=== PATIENT | female | born 1950 | race Caucasian/White ===

== ENCOUNTER 2022-03-18 11:00 | Outpatient (RCR) | payer MEDICARE, SELFPAY ==
--- NOTE | 2021-09-09 12:04 | OT.OPLDN ---
OT Outpatient Lymphedema Daily Note OT Outpatient Lymphedema Daily Note Start: 09/09/21 10:39 Freq: Status: Active Protocol: Document 09/09/21 10:52 AMB (Rec: 09/09/21 12:03 AMB [id number]) E-signed By Nicole Bernal, OTR/L, CLT, CONDENSER TESTER OT OP Lymphedema Daily/Progress Note Insurance Information Insurance Information Medicare B Insurance Information Comments Please see evaluation dated in [employer]. Original Cert dates are 06/06/21-09/05/21 New Medicare cert dates: 09/05-12/05/21 Recert Due Recert Due 12/05/21 Note Type Note Type Daily,Recert/Progress Note Subjective Subjective Pt continues to do well, pt denies any concerns for lymphedema and has not noted any swelling in her arms or chest wall. Pt has been wearing a compression bra with OTS cups in place, likes them , states she actually got them at [facility]. Home Program Compliant To Home Program Yes Home Program Specifics Self Monitoring Treatment Self Care Provided review of patient education regarding the lymphatic system, s/s of lymphedema, treatment options for lymphedema, implications of untreated lymphedema, infection and it's correlation to lymphedema as well as implications of untreated infection. Discussed risk reduction practices including skin care and monitoring strategies. Discussed the importance of regular exercise and healthy habits. 15 min Therapeutic Activities Re-assessment of BUE limb circumference, please see assessment. Assessment Pt presents for continuation of lymphedema surveillance program. Following her 05/08/21 mastectomy with SLN biopsy, pt is now at risk for lymphedema in her BUE / upper quadrant due to LN removal. Pt will continue to benefit from skilled OT intervention for pt education, monitoring /surveillance in order to provide early detection / intervention to assure best positive outcomes with fewer lymphedema related complications if the need arises. Pt demonstrates good interest and motivation to be an active participant in her care. Pt asked multiple pertinent questions and received satisfactory answers. Pt was given contact info and encouraged to reach out if more questions arise. Pt likes to keep active, lives a healthy lifestyle and acknowledges the value in regular medical visits SHANTE OSUNA Met heads 19.5cm 19.0cm Palm 20.0 19.5 Wrist 15.5 15.5 10cm 19.0 18.8 20cm 23.5 23.5 30cm 28.9 30.0 40cm 32.5 33.0 Pt demonstrates good skin condition and no obvious swelling in either extremity. Treatment Minutes Timed Treatment Minutes 20 Total Timed Treatment Minutes 20 Patient Goals Patient Goals 1. Pt will demonstrate a general understanding of the lymphatic system, s/s of lymphedema, treatment of lymphedema, implications of untreated lymphedema, s/s of infection and the correlation of infection related to lymphedema. 3 months 2. Pt will be compliant with quarterly assessments for lymphedema surveillance in order to obtain early intervention with best outcomes if needed. 12 months Treatment Plan Treatment Plan MLD,Skin Care Education,Short Stretch Compression Bandaging, Self Care/Patient/Family/ Caregiver Education, Therapeutic Exercise Instruction,Manual Therapy,HEP ,Therapeutic Activities Treatment Plan Comments Signature of physician indicates agreement with: Treatment Plan Certification Dates Medically Needed Services Daily Plan of Care Continue Per POC Occupational Therapy Billing Units Billing Units Self Care/Home Management 1
--- NOTE | 2021-12-09 09:12 | OT.OPLDN ---
OT Outpatient Lymphedema Daily Note OT Outpatient Lymphedema Daily Note Start: 09/09/21 10:39 Freq: Status: Active Protocol: Document 12/09/21 08:59 AMB (Rec: 12/09/21 09:08 AMB [id number]) E-signed By Nicole Bernal, OTR/L, CLT, BUSINESS DEVELOPMENT ASSOCIATE OT OP Lymphedema Daily/Progress Note Note Type Note Type Recert/Progress Note Visit Number 3 Insurance Information Insurance Information Medicare B Insurance Information Comments Please see evaluation dated in [employer]. Original Cert dates are 06/06/21-09/05/21 New Medicare cert dates: -03/06/22 Current Condition/Medical Diagnosis Referring Provider Dr. Ovalles Treatment Diagnosis BUE mastectomy Date Of Onset 05/08/21 Recert Due Recert Due 12/05/21 Subjective Subjective Pt is doing well, does not feel she is showing any sxs of lymphedema. Pt states she and her are working hard on remodeling their cabin and she has really been working her arms, no concerns. Home Program Compliant To Home Program Yes Home Program Specifics Self Monitoring Treatment Self Care Provided review of patient education regarding the lymphatic system, s/s of lymphedema, treatment options for lymphedema, implications of untreated lymphedema, infection and it's correlation to lymphedema as well as implications of untreated infection. Discussed risk reduction practices including skin care and monitoring strategies. Discussed the upcoming winter months with dry / cracked skin, reminded pt of good skin care including lotion and monitoring. 15 min Therapeutic Activities Re-assessment of BUE limb circumference, please see assessment. Therapeutic Activity Minutes (minutes) 6 Assessment Pt presents for continuation of lymphedema surveillance program. Following her 05/08/21 mastectomy with SLN biopsy, pt is now at risk for lymphedema in her BUE / upper quadrant due to LN removal. Pt will continue to benefit from skilled OT intervention for pt education, monitoring /surveillance in order to provide early detection / intervention to assure best positive outcomes with fewer lymphedema related complications if the need arises. Pt continues to demonstrate good interest and motivation to be an active participant in her care. Pt asked multiple pertinent questions and received satisfactory answers. Pt has tag writer's contact info and encouraged to reach out if more questions arise. Pt likes to keep active, lives a healthy lifestyle and acknowledges the value in regular medical visits SHANTE OSUNA Met heads 19.5cm 19.0cm Palm 20.0 19.5 Wrist 15.5 15.5 10cm 19.0 18.7 20cm 23.3 23.5 30cm 28.5 30.1 40cm 32.5 32.5 Skin condition is excellent, no significant changes in circumferential measurements, no concerns for lymphedema at this time. Patient Goals Patient Goals 1. Pt will demonstrate a general understanding of the lymphatic system, s/s of lymphedema, treatment of lymphedema, implications of untreated lymphedema, s/s of infection and the correlation of infection related to lymphedema. 3 months 2. Pt will be compliant with quarterly assessments for lymphedema surveillance in order to obtain early intervention with best outcomes if needed. 12 months Treatment Plan Daily Plan of Care Continue Per POC Treatment Minutes Timed Treatment Minutes 21 Total Timed Treatment Minutes 21 Occupational Therapy Billing Units Billing Units Self Care/Home Management 1 Recertification Information Recertification Information Initial Certification Date 06/06/21 Recertification Start Date 12/05/21 Recertification Due Date 03/06/22 Reasons to Continue Skilled Therapy Pt will continue with lymphedema surveillance program with re-assessment quarterly for 12 months following date of surgery. If the need arises, pt will transition to treatment as indicated at the time of need, in which case, early detection and intervention yields best outcomes. Rehabilitation Potential Good Continued Plan of Care and Interventions TA, self care, MT, TE Provider Signature Shows Agreement With POC & Medical Necessity Physician Comment/Change Comment or Changes Physician NPI Number #
--- NOTE | 2022-03-18 12:55 | OT.OPLDN ---
OT Outpatient Lymphedema Daily Note OT Outpatient Lymphedema Daily Note Start: 09/09/21 10:39 Freq: Status: Active Protocol: Document 03/18/22 12:45 AMB (Rec: 03/18/22 12:54 AMB [id number]) E-signed By Nicole Bernal, OTR/L, CLT, METAL FITTER OT OP Lymphedema Daily/Progress Note Note Type Note Type Discharge Note,Recert/Progress Note Visit Number 4 Insurance Information Insurance Information Medicare B Insurance Information Comments Please see evaluation dated in [employer]. Original Cert dates are 06/06/21-09/05/21 New Medicare cert dates: -03/06/22 Current Condition/Medical Diagnosis Referring Provider Dr. Ovalles Treatment Diagnosis BUE mastectomy Date Of Onset 05/08/21 Recert Due Recert Due 03/06/22 Subjective Subjective Pt feels she is doing very well, no s/s of lymphedema, no concerns except a strange spot on her chest wall, I think it's a black head. Home Program Compliant To Home Program Yes Home Program Specifics Self Monitoring Treatment Self Care Provided review of patient education regarding the lymphatic system, s/s of lymphedema, treatment options for lymphedema, implications of untreated lymphedema, infection and it's correlation to lymphedema as well as implications of untreated infection. Discussed risk reduction practices including skin care and monitoring strategies. Discussed the upcoming winter months with dry / cracked skin, reminded pt of good skin care including lotion and monitoring. Recommended pt have MD check the spot on her chest if it continues to bother her. Self Care Activity Minutes (minutes) 20 Therapeutic Activities Re-assessment of BUE limb circumference, please see assessment. Therapeutic Activity Minutes (minutes) 10 Assessment Pt presents for her final lymphedema surveillance program. Following her 05/08/21 mastectomy with SLN biopsy, pt is now at risk for lymphedema in her BUE / upper quadrant due to LN removal. Pt feels she has a good understanding of lymphedema, s /s, treatment and risk reduction practices. Pt currently does not demonstrate any concerns for lymphedema and feels ready to discharge to independent program. SHANTE OSUNA Met heads 19.2cm 19.0cm Palm 20.0 19.2 Wrist 15.5 15.5 10cm 18.8 18.5 20cm 23.0 23.0 30cm 27.0 29.8 40cm 31.5 31.5 Skin condition is excellent, no significant changes in circumferential measurements, no concerns for lymphedema at this time. Patient Goals Patient Goals 1. Pt will demonstrate a general understanding of the lymphatic system, s/s of lymphedema, treatment of lymphedema, implications of untreated lymphedema, s/s of infection and the correlation of infection related to lymphedema. 3 months Goal is met 2. Pt will be compliant with quarterly assessments for lymphedema surveillance in order to obtain early intervention with best outcomes if needed. 12 months Goal is met. Treatment Plan Daily Plan of Care Continue Per POC Treatment Minutes Timed Treatment Minutes 30 Total Timed Treatment Minutes 30 Occupational Therapy Billing Units Billing Units Self Care/Home Management 1 Therapeutic Activities 1 Recertification Information Recertification Information Initial Certification Date 06/06/21 Recertification Start Date 03/06/22 Recertification Due Date 04/06/22 Reasons to Continue Skilled Therapy Pt was seen one last visit to complete her lymphedema surveillance program s/p BUE mastectomy with SLN biopsy. Rehabilitation Potential Good Continued Plan of Care and Interventions TA, self care, MT, TE Provider Signature Shows Agreement With POC & Medical Necessity Physician Comment/Change Comment or Changes Physician NPI Number #
== END 2022-03-18 13:00 | disposition home or self-care (01) ==
PROVIDERS: PCP Family Medicine; Visit Provider Surgery
DX: I89.0 Lymphedema, not elsewhere classified (principal)
CPT/HCPCS: 97530; 97535